=== PATIENT | female | born 1945 | race Two or more races ===

== ENCOUNTER 2016-08-08 13:30 | Emergency (ER) | payer OTHER ==
[~2016-08-08] VITALS: Ht 149.9 cm; Wt 69.9 kg
[2016-08-08 14:10] VITALS: BP 136/85
[2016-08-08] MEDS ORDERED: NKM (14:15)
[2016-08-08] MEDS ORDERED: Norco 7.5mg/325mg tab ORAL ONE (14:30)
--- NOTE | 2016-08-08 14:40 | Emergency Room Report ---
History of Present Illness General Chief Complaint: Upper Extremity Injury Source: Patient Present Illness HPI 71-year-old female presents emergency department complaining of 10 out of 10 in severity left wrist pain times one day status post mechanical slip and fall. Patient states she fell on outstretched arm she denies hitting her head she denies loss of consciousness. Patient denies past medical history she states she took Advil with no relief. She reports swelling, bruising and deformity to the left wrist. Denies numbness tingling or loss of sensation or gross motor movements of the extremities, incontinence of bowel or bladder. Denies CP, Palpitations, LOC, AMS, dizziness, Changes in Vision, Sensation, paresthesias, or a sudden severe headache. Allergies: Coded Allergies: No Known Allergies (Unverified , 08/08/16) Patient History Past Medical History: see triage record Past Surgical History: none Pertinent Family History: none Now: No Reviewed Nursing Documentation: PMH: Agreed, PSxH: Agreed Nursing Documentation-PMH Past Medical History: No History, Except For Review of Systems All Other Systems: negative except mentioned in HPI Physical Exam Vital Signs Date Time Temp Pulse Resp B/P Pulse Ox O2 Delivery O2 Flow Rate FiO2 08/08/16 14:10 97.9 16 136/85 97 Room Air 08/08/16 14:10 92 Sp02 EP Interpretation: reviewed, normal General Appearance: no apparent distress, alert, GCS 15, non-toxic Head: normocephalic, atraumatic Eyes: bilateral eye PERRL, bilateral eye normal inspection ENT: hearing grossly normal, normal pharynx, no angioedema, normal voice Neck: full range of motion, supple/symm/no masses Respiratory: chest non-tender, lungs clear, normal breath sounds, speaking full sentences Cardiovascular #1: regular rate, rhythm, no edema, normal capillary refill Cardiovascular #2: 2+ radial (R), 2+ radial (L) Musculoskeletal: back normal, gait/station normal, normal range of motion, other - TTP, swelling and obvious deformity of the left wrist, TTP primarily on radial side. limited ROM due to pain., tender - TTP left wrist Neurologic: alert, oriented x3, responsive, motor strength/tone normal, sensory intact, speech normal Psychiatric: judgement/insight normal, memory normal, mood/affect normal Skin: normal color, no rash, warm/dry, well hydrated Procedures Additional Procedure Procedure Narrative Reduction Procedure: - Hematoma block using lidocaine is performed in a sterile fashion -Single attempt was made to reduce the displacement of the fracture using traction and digital manipulation of the bones. -Pt. tolerated the Procedure well. -Sugar tong splint is applied the instrument and control technician, patient remained neurovascularly intact. Medical Decision Making PA Attestation Dr. Hanson is my supervising Physician whom patient management has been discussed with. Diagnostic Impression: Primary Impression: Distal radius fracture, left Qualified Codes: S52.502A - Unspecified fracture of the lower end of left radius, initial encounter for closed fracture Additional Impression: wrist bone dislocation pisiform ER Course 71-year-old female presents emergency department complaining of 10 out of 10 in severity left wrist pain times one day status post mechanical slip and fall. Patient states she fell on outstretched arm she denies hitting her head she denies loss of consciousness. Patient denies past medical history she states she took Advil with no relief. She reports swelling, bruising and deformity to the left wrist. Denies numbness tingling or loss of sensation or gross motor movements of the extremities, incontinence of bowel or bladder. Denies CP, Palpitations, LOC, AMS, dizziness, Changes in Vision, Sensation, paresthesias, or a sudden severe headache. Ddx considered but are not limited to Fracture, dislocation, contusion, Sprain/ Strain/Spasm, Epidural abscess, Neoplastic mets. Vital signs: are WNL, pt. is afebrile H&PE are most consistent with possible wrist fracture will do imaging. ORDERS: - X-ray left wrist 3 views - Positive for distal radial fracture that is displaced, and possible pisiform dislocation- per official radiology report - X-ray ( Post Reduction) of the Left Wrist 2 views: improvement in anatomical orientation of the fracture distal radius- Per soft read in ED by ED INTERVENTIONS: - 7.5mg Sycamore PO for pain Reduction Procedure: - Hematoma block using lidocaine 1% 10ml is performed in a sterile fashion -Single attempt was made to reduce the displacement of the fracture using traction and digital manipulation of the bones. -Pt. tolerated the Procedure well. -Sugar tong splint is applied the instrument and control technician, patient remained neurovascularly intact. -Patient is placed in a Left arm sling, and remained neurovascularly intact -Discussed the need to followup with an office support specialist. Pt provided with copies of imaging. DISCHARGE: At this time pt. is stable for d/c to home. Will provide printed patient care instructions, and any necessary prescriptions. Care plan and follow up instructions have been discussed with the patient prior to discharge. Last Vital Signs Date Time Temp Pulse Resp B/P Pulse Ox O2 Delivery O2 Flow Rate FiO2 08/08/16 14:10 97.9 92 16 136/85 97 Room Air Disposition: HOME, SELF-CARE Condition: Stable Scripts Ibuprofen* (MOTRIN*) 600 Mg Tablet 600 MG ORAL THREE TIMES A DAY, #30 TAB 0 Refills Prov: Lori Burnett 08/08/16 Hydrocodone Bit/Acetaminophen 5-325* (NORCO 5-325 TABLET*) 1 Each Tablet 1 TAB ORAL Q6HR Y for For Pain, #10 TAB Prov: Lori Burnett 08/08/16 Referrals: JUAN JOSÉ GASTELUM,REFERRING (PCP) Patient Instructions: Radial Fracture Additional Instructions: Take medications as directed. Follow up with PCP in 3-5 days Return sooner to ED if new symptoms occur, or current symptoms become worse. Do not drink alcohol, drive, or operate heavy machinery while taking Sycamore as this may cause drowsiness. - Please note that this Emergency Department Report was dictated using [employer] quality assurance specialist technology software, occasionally this can lead to erroneous entry secondary to interpretation by the dictation equipment. Lori Burnett Aug 08, 2016 14:40
[2016-08-08] MEDS ORDERED: Lidocaine 1% Plain 30 ml INJ ONE (14:45)
--- NOTE | 2016-08-08 14:59 | Diagnostic Imaging Report ---
Clinical Indication:PAIN Technique: 3 views of the left wrist Comparison: None Findings: There is a transverse fracture of the distal radius, which is slightly posteriorly angulated. No definite involvement of the articular surface although not completely excludable. The ulnar styloid appears to be intact. There appears to be unusual inferior subluxation of the pisiform, which projects inferiorly and slightly laterally. To the triquetrum. Findings discussed by phone this may be chronic, as there appears to be an unusual bony bridge between it and the triquetrum on the oblique view. No evidence of carpal fracture otherwise. There is degenerative narrowing of the lateral intercarpal joint and of the first carpometacarpal joint. Impression: Positive for distal radial fracture Possible pisiform subluxation or dislocation, acuity indeterminate if real. Correlate with clinical findings Degenerative changes, as described Findings discussed by phone with Lori in the emergency room at the time of interpretation
[2016-08-08] MEDS ORDERED: NORCO 5-325 TA1 EAC1 ORAL (16:01)
[2016-08-08] MEDS ORDERED: IBUPROFEN600 MG ORAL (16:01)
[2016-08-08 16:36] VITALS: BP 125/81
[2016-08-08 16:38] VITALS: BP 125/81
--- NOTE | 2016-08-09 10:52 | Diagnostic Imaging Report ---
Indications: Left radial fracture, status post closed reduction Technique: Portable AP and lateral radiographs of the left wrist at 1616 Findings: Comparison: Prereduction images at 1427 Dorsal displacement and angulation of distal radial fracture fragments persist, decreased. Surrounding soft tissues remain swollen. Fiberglass cast or splint has been placed. IMPRESSION: Partial closed reduction of distal radial fracture
== END 2016-08-08 16:38 | disposition home or self-care (01) ==
LOC: EMR 14:25
DX: S52.592A Other fractures of lower end of left radius, initial encounter for closed fracture (principal); S63.095A Other dislocation of left wrist and hand, initial encounter; W01.0XXA Fall on same level from slipping, tripping and stumbling without subsequent striking against object, initial encounter; Y92.89 Other specified places as the place of occurrence of the external cause
CPT/HCPCS: 29125; 29240; 73100; 73110; 99284; J2001; Z7502